=== PATIENT | male | born 1985 | race Hispanic/Latino ===

== ENCOUNTER 2019-06-03 09:34 | Emergency (ER) | payer SELFPAY ==
[2019-06-03] MEDS ORDERED: ASPIRIN EC 81 MG TAB PO ONE (11:12)
--- NOTE | 2019-06-03 11:25 | RAD REPORT ---
EXAM DESCRIPTION: RAD - Chest Single View - 06/03/2019 11:09 am CLINICAL HISTORY: CHEST PAIN Chest pain. COMPARISON: CHEST PA AND LAT 2 VIEW dated 02/27/2015 FINDINGS: Portable technique limits examination quality. No focal infiltrate is seen. The lungs are grossly clear. The heart is normal in size. No displaced f ractures. IMPRESSION: No acute intrathoracic process suspected.
[2019-06-03 11:30] LABS: Protime INR 1.07
[2019-06-03 11:31] LABS: Absolute Lymphocytes (CBC) 2.4 K/uL (0.7-4.9); Basophils % 0.8 % (0-1.3); Hematocrit 43.7 % (39.6-49.0); Lymphocytes % 31.8 % (15.3-44.8); MPV 8.7 fL (7.6-11.3); RBC Red Blood Cell Count 4.94 M/uL (4.33-5.43)
[2019-06-03 11:53] LABS: ALT/SGPT 42 U/L (12-78); AST/SGOT 20 U/L (15-37); Albumin 3.5 g/dL (3.4-5.0); Alkaline Phosphatase 79 U/L (45-117); BUN Blood Urea Nitrogen 12 mg/dL (7-18); Bicarbonate 28 mmol/L (21-32); Bilirubin Direct 0.1 mg/dL (0-0.2); Bilirubin Total 0.5 mg/dL (0.2-1.0); Glucose Level 133 mg/dL (74-106); NT PRO-BNP 61 pg/mL (<125); Potassium 3.6 mmol/L (3.5-5.1); Protein, Total 7.3 g/dL (6.4-8.2); Sodium Level 144 mmol/L (136-145); Troponin (Emerg Dept Use Only) < 0.02 ng/mL (0.0-0.045)
--- NOTE | 2019-06-03 15:22 | ER ---
Nurse's Notes [facility] Name: Albert Ramirez Jr Age: 34 yrs Sex: Male : 1985 Arrival Date: 06/03/2019 Time: 09:35 Bed 15 Private MD: Diagnosis: Chest pain, unspecified Presentation: 06/03 10:30 Presenting complaint: Patient states: Chest pain "around heart" that began yesterday ph after attempting to pull/move a trailer at work yesterday, denies SOB, N/V. Transition of care: patient was not received from another setting of care. Onset of symptoms was June 03, 2019. Risk Assessment: Do you want to hurt yourself or someone else? Patient reports no desire to harm self or others. Initial Sepsis Screen: Does the patient meet any 2 criteria? No. Patient's initial sepsis screen is negative. Does the patient have a suspected source of infection? No. Patient's initial sepsis screen is negative. Care prior to arrival: None. 10:30 Method Of Arrival: Ambulatory ph 10:30 Acuity: OLSEYA 3 ph Historical: - Allergies: 10:33 No Known Allergies; ph - Home Meds: 10:33 Lisinopril Oral [Active]; ph - PMHx: 10:33 Hypertension; ph - PSHx: 10:33 None; ph - Immunization history:: Adult Immunizations unknown. - Social history:: Patient uses Vape, Smoking status: Patient/guardian denies using tobacco. - Ebola Screening: : No symptoms or risks identified at this time. Screenin:34 Abuse screen: Denies threats or abuse. Denies injuries from another. Nutritional ph screening: No deficits noted. Tuberculosis screening: No symptoms or risk factors identified. Fall Risk None identified. Assessment: 11:00 General: Appears in no apparent distress. comfortable, obese, well groomed, Behavior is ph calm, cooperative, appropriate for age, Denies fever, feeling ill. Pain: Complains of pain in anterior aspect of left upper chest Pain does not radiate. Pain began 1 day ago. Neuro: Level of Consciousness is awake, alert, obeys commands, Oriented to person, place, time, situation. Cardiovascular: Reports chest pain, Denies lightheadedness, nausea, shortness of breath, Capillary refill < 3 seconds in bilateral fingers Patient's skin is warm and dry. Rhythm is sinus rhythm Chest pain is described as mild, is located in left anterior chest wall. Respiratory: Airway is patent Respiratory effort is even, unlabored, Respiratory pattern is regular, symmetrical. Derm: Skin is intact, is healthy with good turgor, Skin is pink, warm \\T\\ dry. 12:00 Reassessment: Patient appears in no apparent distress at this time. Patient and/or ph family updated on plan of care and expected duration. Pain level reassessed. Patient is alert, oriented x 3, equal unlabored respirations, skin warm/dry/pink. 13:00 Reassessment: Patient appears in no apparent distress at this time. Patient and/or ph family updated on plan of care and expected duration. Pain level reassessed. Patient is alert, oriented x 3, equal unlabored respirations, skin warm/dry/pink. 14:20 Reassessment: Patient appears in no apparent distress at this time. Patient and/or ph family updated on plan of care and expected duration. Pain level reassessed. Patient is alert, oriented x 3, equal unlabored respirations, skin warm/dry/pink. Pt resting quietly, awaiting results repeat cardiac enzymes. Vital Signs: 10:32 BP 134 / 84; Pulse 80; Resp 18; Temp 98.2; Pulse Ox 97% on R/A; Weight 136.08 kg; ph Height 5 ft. 11 in. (180.34 cm); Pain 1/10; 11:32 BP 122 / 85; Pulse 68; Resp 18; Pulse Ox 96% on R/A; ph 13:09 BP 128 / 91; Pulse 67; Resp 13; Temp 98.0(O); Pulse Ox 98% on R/A; mh5 14:14 BP 134 / 89; Pulse 63; Resp 18; Pulse Ox 100% on R/A; ph 10:32 Body Mass Index 41.84 (136.08 kg, 180.34 cm) ph ED Course: 09:35 Patient arrived in ED. as 10:05 EKG done, by technical sourcing recruiter. reviewed by Jake Lisa MD. at1 10:25 Hu Tamayo PA is PHCP. cp 10:25 Jake Lisa MD is Attending Physician. cp 10:30 Arin Hernández, SHANI is Primary Nurse. ph 10:32 Triage completed. ph 10:34 Patient maintains SpO2 saturation greater than 95% on room air. ph 10:34 Arm band placed on. ph 10:34 Patient has correct armband on for positive identification. Bed in low position. Call ph light in reach. Side rails up X 1. Pulse ox on. NIBP on. Door closed. Noise minimized. Warm blanket given. 11:10 X-ray completed. Portable x-ray completed in exam room. Patient tolerated procedure [facility] well. 11:12 XRAY Chest (1 view) In Process Unspecified. EDAL 11:19 Initial lab(s) drawn, by hi, sent to lab. Inserted saline lock: 22 gauge in right [facility] antecubital area, using aseptic technique. Blood collected. 11:20 Basic Metabolic Panel Sent. [facility] 11:20 CBC with Diff Sent. [facility] 11:20 LFT's Sent. [facility] 11:20 Magnesium Sent. [facility] 11:20 NT PRO-BNP Sent. [facility] 11:20 PT-INR Sent. [facility] 11:20 Troponin (emerg Dept Use Only) Sent. [facility] 11:23 monitor car operator on. [facility] 15:19 Frank Solis MD is Referral Physician. cp 15:30 No provider procedures requiring assistance completed. IV discontinued, intact, ph bleeding controlled, No redness/swelling at site. Pressure dressing applied. Administered Medications: 11:31 Drug: Aspirin Chewable Tablet 324 mg Route: PO; ph Outcome: 15:20 Discharge ordered by MD. cp 15:38 Patient left the ED. ph 15:38 Discharged to home ambulatory. ph 15:38 Condition: good 15:38 Discharge instructions given to patient, Instructed on discharge instructions, follow up and referral plans. Demonstrated understanding of instructions, follow-up care. Signatures: Dispatcher [employer] EDMS Lili Hannon 1 Elena Elliott Amanda, copy writer EKG [facility] Arin Hernández, RN RN ph Hu Tamayo, MATTHEW PA cp Ashleigh Elliott [facility]
--- NOTE | 2019-06-03 15:22 | EDPHYS ---
Physician Documentation [facility] Name: Albert Ramirez Jr Age: 34 yrs Sex: Male : 1985 Arrival Date: 06/03/2019 Time: 09:35 Bed 15 Private MD: ED Physician Jake Lisa HPI: 06/03 11:00 This 34 yrs old Male presents to ER via Ambulatory with complaints of Chest cp Pain. 11:00 The patient or guardian reports chest pain that is located primarily in the anterior cp chest wall. 11:00 The pain does not radiate. Associated signs and symptoms: Pertinent negatives: cp abdominal pain, cough, diaphoresis, dizziness, lower extremity pain, lower extremity swelling, shortness of breath, syncope. 11:00 The chest pain is described as aching. cp 11:00 Duration: The patient or guardian reports multiple episodes, 1 episode yesterday that cp started at work after moving trailer. Patient reports pain resolved later that day but returned this morning when he awoke. Patient reports pain has resolved. Historical: - Allergies: 10:33 No Known Allergies; ph - Home Meds: 10:33 Lisinopril Oral [Active]; ph - PMHx: 10:33 Hypertension; ph - PSHx: 10:33 None; ph - Immunization history:: Adult Immunizations unknown. - Social history:: Patient uses Vape, Smoking status: Patient/guardian denies using tobacco. - Ebola Screening: : No symptoms or risks identified at this time. ROS: 11:05 Constitutional: Negative for body aches, chills, fever, poor PO intake. cp 11:05 Eyes: Negative for injury, pain, redness, and discharge. cp 11:05 ENT: Negative for drainage from ear(s), ear pain, sore throat, difficulty swallowing, difficulty handling secretions. 11:05 Cardiovascular: Positive for chest pain, Negative for edema, palpitations. 11:05 Respiratory: Negative for cough, shortness of breath, wheezing. 11:05 Abdomen/GI: Negative for abdominal pain, nausea, vomiting, and diarrhea, constipation, black/tarry stool, rectal bleeding. 11:05 Back: Negative for pain at rest, pain with movement, radiated pain. 11:05 : Negative for urinary symptoms. 11:05 Skin: Negative for cellulitis, rash. 11:05 Neuro: Negative for altered mental status, dizziness, headache, numbness, weakness. 11:05 All other systems are negative. Exam: 11:10 ECG was reviewed by the Attending Physician. cp 11:15 Constitutional: The patient appears in no acute distress, alert, awake, comfortable, cp non-diaphoretic, non-toxic, well developed, well nourished. 11:15 Head/Face: Normocephalic, atraumatic. Eyes: Pupils equal round and reactive to light, cp extra-ocular motions intact. Lids and lashes normal. Conjunctiva and sclera are non-icteric and not injected. Cornea within normal limits. Periorbital areas with no swelling, redness, or edema. ENT: Nares patent. No nasal discharge, no septal abnormalities noted. Tympanic membranes are normal and external auditory canals are clear. Oropharynx with no redness, swelling, or masses, exudates, or evidence of obstruction, uvula midline. Mucous membranes moist. Neck: Trachea midline, no thyromegaly or masses palpated, and no cervical lymphadenopathy. Supple, full range of motion without nuchal rigidity, or vertebral point tenderness. No Meningismus. Chest/axilla: Normal chest wall appearance and motion. Nontender with no deformity. No lesions are appreciated. Cardiovascular: Regular rate and rhythm with a normal S1 and S2. No gallops, murmurs, or rubs. Normal PMI, no JVD. No pulse deficits. Respiratory: Lungs have equal breath sounds bilaterally, clear to auscultation and percussion. No rales, rhonchi or wheezes noted. No increased work of breathing, no retractions or nasal flaring. Abdomen/GI: Soft, non-tender, with normal bowel sounds. No distension or tympany. No guarding or rebound. No evidence of tenderness throughout. Skin: Warm, dry with normal turgor. Normal color with no rashes, no lesions, and no evidence of cellulitis. Neuro: Awake and alert, GCS 15, oriented to person, place, time, and situation. Cranial nerves II-XII grossly intact. Motor strength 5/5 in all extremities. Sensory grossly intact. Cerebellar exam normal. Normal gait. 14:30 ECG was reviewed by the Attending Physician. cp Vital Signs: 10:32 BP 134 / 84; Pulse 80; Resp 18; Temp 98.2; Pulse Ox 97% on R/A; Weight 136.08 kg; ph Height 5 ft. 11 in. (180.34 cm); Pain 1/10; 11:32 BP 122 / 85; Pulse 68; Resp 18; Pulse Ox 96% on R/A; ph 13:09 BP 128 / 91; Pulse 67; Resp 13; Temp 98.0(O); Pulse Ox 98% on R/A; mh5 14:14 BP 134 / 89; Pulse 63; Resp 18; Pulse Ox 100% on R/A; ph 10:32 Body Mass Index 41.84 (136.08 kg, 180.34 cm) ph MDM: 10:40 Patient medically screened. cp 15:19 Data reviewed: vital signs, nurses notes, lab test result(s), EKG, radiologic studies, cp plain films. 15:19 Differential diagnosis: abnormal EKG, acute pericarditis, cholecystitis, Cholelithiasis cp costochondritis, pleurisy, pneumonia, pneumothorax, pulmonary embolus, less likely [place]. Test interpretation: by ED physician or midlevel provider: ECG, plain radiologic studies. Counseling: I had a detailed discussion with the patient and/or guardian regarding: the historical points, exam findings, and any diagnostic results supporting the discharge/admit diagnosis, lab results, radiology results, the need for outpatient follow up, a donor relations officer, to return to the emergency department if symptoms worsen or persist or if there are any questions or concerns that arise at home. Special discussion: Based on the patient's history, exam, and Dx evaluation, there is no indication for emergent intervention or inpatient Tx. It is understood by the patient/guardian that if the Sx's persist or worsen they need to return immediately for re-evaluation. 06/03 10:50 Order name: Basic Metabolic Panel; Complete Time: 11:55 cp 06/03 11:55 Interpretation: Normal except: CL 110; GLUC 133. cp 06/03 10:50 Order name: CBC with Diff; Complete Time: 11:45 cp 06/03 10:50 Order name: LFT's; Complete Time: 11:55 cp 06/03 10:50 Order name: Magnesium; Complete Time: 11:55 cp 06/03 10:50 Order name: NT PRO-BNP; Complete Time: 11:55 cp 06/03 10:50 Order name: PT-INR; Complete Time: 11:45 cp 06/03 10:50 Order name: Troponin (emerg Dept Use Only); Complete Time: 11:55 cp 06/03 10:50 Order name: XRAY Chest (1 view); Complete Time: 11:45 cp 06/03 11:45 Interpretation: Report review. 06/03 10:50 Order name: EKG; Complete Time: 10:52 cp 06/03 10:50 Order name: Cardiac monitoring; Complete Time: 11:21 cp 06/03 10:50 Order name: EKG - Nurse/Tech; Complete Time: 11:32 cp 06/03 14:02 Order name: EKG; Complete Time: 14:03 cp 06/03 14:02 Order name: Troponin I; Complete Time: 15:17 cp 06/03 15:18 Interpretation: Reviewed. 06/03 10:50 Order name: IV Saline Lock; Complete Time: 11:21 cp 06/03 10:50 Order name: Labs collected and sent; Complete Time: 11:21 cp 06/03 10:50 Order name: O2 Per Protocol; Complete Time: 11:32 cp 06/03 10:50 Order name: O2 Sat Monitoring; Complete Time: 11:32 cp 06/03 14:02 Order name: EKG - Nurse/Tech; Complete Time: 15:28 cp EC:10 Rate is 69 beats/min. Rhythm is regular. DE interval is normal. QRS interval is normal. cp QT interval is normal. T waves are Inverted in lead III. Interpreted by me. Reviewed by me. 14:30 Rate is 61 beats/min. Rhythm is regular. DE interval is normal. QRS interval is normal. cp QT interval is normal. T waves are Inverted in lead III. Interpreted by me. Reviewed by me. Administered Medications: 11:31 Drug: Aspirin Chewable Tablet 324 mg Route: PO; ph Disposition: 06/03/19 15:20 Discharged to Home. Impression: Chest pain, unspecified. - Condition is Stable. - Discharge Instructions: Nonspecific Chest Pain, Aspirin and Your Heart. - Work release form, Medication Reconciliation Form, Thank You Letter, Antibiotic Education, Prescription Opioid Use form. - Follow up: Frank Solis MD; When: 1 - 2 days; Reason: Recheck today's complaints. - Problem is new. - Symptoms have improved. Addendum: 06/08/2019 09:42 Co-signature as Attending Physician, Jake Lisa MD I agree with the assessment and cricket gallo plan of care. Signatures: Dispatcher [employer] EDJake Aldrich MD MD [facility] Arin Hernández RN RN ph Belkis, MATTHEW Lui cp Corrections: (The following items were deleted from the chart) 06/03 15:38 15:20 06/03/2019 15:20 Discharged to Home. Impression: Chest pain, unspecified. ph Condition is Stable. Forms are Medication Reconciliation Form, Thank You Letter, Antibiotic Education, Prescription Opioid Use. Follow up: Frank Solis; When: 1 - 2 days; Reason: Recheck today's complaints. Problem is new. Symptoms have improved. cp
--- NOTE | 2019-06-03 15:55 | EKG ---
Test Date: 2019-06-03 Test Time: 14:23:18 Army Manager: KEVIN MEASUREMENT RESULTS: Intervals: Rate: 61 MS: 172 QRSD: 88 QT: 424 QTc: 426 [place]: P: 45 MS: 172 QRS: 54 T: 0 INTERPRETIVE STATEMENTS: Normal sinus rhythm with sinus arrhythmia Possible Inferior infarct, age undetermined Abnormal ECG Compared to ECG 06/03/2019 09:44:09 Myocardial infarct finding now present Electronically Signed On 06-03-19 15:54:01 CDT by Sami Vivas
--- NOTE | 2019-06-03 15:56 | EKG ---
Test Date: 2019-06-03 Test Time: 09:44:09 Counter Intelligence: THOMAS MEASUREMENT RESULTS: Intervals: Rate: 69 LA: 172 QRSD: 88 QT: 402 QTc: 430 [place]: P: 52 LA: 172 QRS: 69 T: 15 INTERPRETIVE STATEMENTS: Normal sinus rhythm Normal ECG No previous ECG available for comparison Electronically Signed On 06-03-19 15:54:20 CDT by Sami Vivas
[2019-06-03 16:08] VITALS: TEMP 98
[2019-06-03 16:10] VITALS: BP 134/89; O2SAT 100
== END 2019-06-03 15:38 | disposition home or self-care (01) ==
LOC: ER 09:34
DX: R07.9 Chest pain, unspecified (principal); I10 Essential (primary) hypertension
CPT/HCPCS: 36415; 71045; 80048; 80076; 83735; 83880; 84484; 85025; 85610; 93005; 99285

== ENCOUNTER 2022-04-27 12:33 | Emergency (ER) | payer SELFPAY ==
[2022-04-27] MEDS ORDERED: KETOROLAC 30 MG/ML INJ ONE (13:31)
[2022-04-27 13:43] LABS: Absolute Lymphocytes (CBC) 1.9 K/uL (0.7-4.9); Hematocrit 48.4 % (39.6-49.0); Lymphocytes % 33.5 % (15.3-44.8); MCV 87.7 fL (80-100); MPV 7.5 fL (7.6-11.3); RBC Red Blood Cell Count 5.51 M/uL (4.33-5.43)
[2022-04-27 13:55] LABS: Albumin 3.4 g/dL (3.4-5.0); Bilirubin Total 0.4 mg/dL (0.2-1.0); Protein, Total 7.9 g/dL (6.4-8.2)
--- NOTE | 2022-04-27 13:58 | RAD REPORT ---
EXAM DESCRIPTION: RAD - Elbow Left 3 View - 04/27/2022 1:48 pm CLINICAL HISTORY: Left elbow pain FINDINGS: No fracture or dislocation is seen. No bony destructive lesion is seen. No significant joint effusion
--- NOTE | 2022-04-27 13:59 | RAD REPORT ---
EXAM DESCRIPTION: RAD - Knee Left 3 View - 04/27/2022 1:47 pm CLINICAL HISTORY: Left knee pain FINDINGS: No fracture or dislocation is seen. No bony destructive lesion is seen. No significant joint effusion
--- NOTE | 2022-04-27 14:06 | EDPHYS ---
Physician Documentation [facility] Name: Albert Ramirez Jr Age: 37 yrs Sex: Male : 1985 Arrival Date: 04/27/2022 Time: 12:40 Bed 24 Private MD: ED Physician Jake Lisa HPI: 04/27 13:33 This 37 yrs old Male presents to ER via Ambulatory with complaints of Possible pm1 Lyme Disease. 13:33 The patient's rash thought to be caused by insect bites, tick bite about one month ago. pm1 The rash is located on the right clifton. The rash can be described as patchy. Onset: The symptoms/episode began/occurred 1 week(s) ago. Associated signs and symptoms: Pertinent positives: Joint pain to bilateral knees and left elbow, body aches, Pertinent negatives: fever. Severity of symptoms: in the emergency department the symptoms have improved Right knee pain resolved. Left knee pain and left elbow pain improved but still present. Left knee pain present with standing and left elbow pain present only with full extension. Treatment given at home: None. The patient has not experienced similar symptoms in the past. The patient has been recently seen at an urgent care, last week, for similar complaints, was given a prescription for antibiotics, Patient was seen for the same symptoms 1 week ago in a urgent care and had swabs for COVID and it was negative. Patient reports 1 month ago he was bitten by a tick to the right clifton area. Patient presenting to ER with concerns for Lyme disease when symptoms of rash, flu symptoms, and joint pain appeared last Saturday. Went to urgent care one week ago and was tested for covid, negative result. He was prescribe sulfa and mupirocin and was diagnosed with cellulitis. Patient reports improvement in his cellulitis and flu symptoms. Historical: - Allergies: 12:45 No Known Allergies; ap3 - Home Meds: 12:45 unknown antibiotic [Active]; ap3 - PMHx: 12:45 Hypertension; ap3 - Immunization history:: Client reports receiving the 2nd dose of the Covid vaccine. - Social history:: Smoking status: Patient reports the use of cigarette tobacco products, denies chronic smoking, but will smoke occasionally. ROS: 13:33 Cardiovascular: Negative for chest pain, palpitations, and edema, Respiratory: Negative pm1 for shortness of breath, cough, wheezing, and pleuritic chest pain, Abdomen/GI: Negative for abdominal pain, nausea, vomiting, diarrhea, and constipation. 13:33 Neuro: Negative for headache, weakness, numbness, tingling, and seizure. 13:33 Constitutional: Positive for body aches, that have resolved, Negative for fever, poor PO intake. 13:33 MS/extremity: Positive for joint pain, bilateral knees and left elbow. Resolved to right knee, Negative for decreased range of motion, deformity. 13:33 Skin: Positive for rash, of the right clifton. 13:33 All other systems are negative. Exam: 13:33 Constitutional: This is a well developed, well nourished patient who is awake, alert, pm1 and in no acute distress. Head/Face: Normocephalic, atraumatic. 13:33 Eyes: Exam is negative for acute changes, Periorbital structures: appear normal, Pupils: no acute changes, Extraocular movements: no acute changes, Conjunctiva: no acute changes, no injection. 13:33 ENT: Exam is negative for acute changes, Mouth: no acute changes, Lips: normal, moist, Oral mucosa: normal, pink and intact, moist. 13:33 Cardiovascular: Exam negative for acute changes, Rate: normal, Rhythm: regular, Pulses: no pulse deficits are appreciated. 13:33 Respiratory: Exam negative for acute changes, respiratory distress, shortness of breath, Breath sounds: are clear throughout. 13:33 Skin: Appearance: normal except for affected area, rash a mild rash is noted, rash can be described as macular, negative for raised, warmth, swelling, tenderness, on the right clifton. 13:33 Neuro: Exam negative for acute changes, Orientation: is normal, Mentation: is normal, Motor: is normal, moves all fours, Sensation: is normal, no obvious gross deficits. Vital Signs: 12:40 BP 149 / 98; Pulse 98; Resp 17; Temp 97.8; Pulse Ox 98% ; Weight 136.08 kg; Height 5 ap3 ft. 11 in. (180.34 cm); 12:40 Body Mass Index 41.84 (136.08 kg, 180.34 cm) ap3 MDM: 13:06 Patient medically screened. pm1 13:33 ED course: Informed patient that I will not be able to get a Lyme disease titer on him pm1 in the ER and that he would need to follow up with a PCP for that test. However I can test the patient for other possible issues based on his symptom presentation. Patient was seen on Saturday and prescribed Bactrim for cellulitis of right clifton. Discussed with patient that I will will cover patient with doxycycline and get blood work, x-rays. Patient refused flu and COVID test. Had tests performed on Saturday and they were negative. Patient reports few symptoms have resolved and his cellulitis to right clifton has improved with Bactrim. 13:57 Data reviewed: vital signs. Data interpreted: Pulse oximetry: on room air is 98 %. pm1 Interpretation: normal. 14:03 Counseling: I had a detailed discussion with the patient and/or guardian regarding: the pm1 historical points, exam findings, and any diagnostic results supporting the discharge/admit diagnosis, lab results, radiology results, the need for outpatient follow up, to return to the emergency department if symptoms worsen or persist or if there are any questions or concerns that arise at home. 04/27 13:19 Order name: CBC with Diff; Complete Time: 13:57 pm1 04/27 13:19 Order name: CMP; Complete Time: 13:57 pm1 04/27 13:19 Order name: IV Saline Lock; Complete Time: 13:33 pm1 04/27 13:19 Order name: Knee Left 3 View XRAY; Complete Time: 14:00 pm1 04/27 13:19 Order name: Elbow Left 3 View XRAY; Complete Time: 13:59 pm1 Administered Medications: 13:33 Drug: Ketorolac 30 mg Route: IVP; Site: right wrist; hb 14:00 Follow up: Response: No adverse reaction hb Disposition: 15:43 Co-signature as Attending Physician, Jake Lsia MD I agree with the assessment and kdr plan of care. Disposition Summary: 04/27/22 14:05 Discharge Ordered Location: Home pm1 Problem: new pm1 Symptoms: have improved pm1 Condition: Stable pm1 Diagnosis - Cellulitis of right lower limb pm1 Followup: pm1 - With: Emergency Department - When: As needed - Reason: Worsening of condition Followup: pm1 - With: Private Physician - When: 2 - 3 days - Reason: Recheck today's complaints, Continuance of care, Re-evaluation by your physician Discharge Instructions: - Discharge Summary Sheet pm1 - Cellulitis, Adult pm1 Forms: - Medication Reconciliation Form pm1 - Thank You Letter pm1 - Antibiotic Education pm1 - Prescription Opioid Use pm1 Prescriptions: - Doxycycline Hyclate 100 mg Oral Tablet - take 1 tablet by ORAL route every 12 hours; 20 tablet; Refills: 0, Product pm1 Selection Permitted - Diclofenac Sodium 75 mg Oral tablet,delayed release (DR/EC) - take 1 tablet by ORAL route 2 times per day As needed; 30 tablet; Refills: 0, pm1 Product Selection Permitted Signatures: Dispatcher [employer] EDJake Adlrich MD MD kdr Marinas, Patrick, NP DRUMS TEACHER pm1 Lavonne Kelsey RN RN Flora Pollard RN RN ap3
--- NOTE | 2022-04-27 14:06 | ER ---
Nurse's Notes [facility] Name: Albert Ramirez Jr Age: 37 yrs Sex: Male : 1985 Arrival Date: 04/27/2022 Time: 12:40 Bed 24 Private MD: Diagnosis: Cellulitis of right lower limb Presentation: 04/27 12:40 Chief complaint: Patient states: he came to the ED today to be tested for Lyme disease. ap3 Patient states he got bit by a tick approx one month ago. Patient reports body aches and headaches off and on for approx one week, with 2 negative COVID results. He states he as a friend that is a bartolo, who informed him to be tested for Lyme. Patient states he then googled Lyme disease and his symptoms "match up perfectly". Patient states he has, what he believes to be a staph infection on his right lower limb, but he is getting treated for that. patient states he was bit by the tick on the left lower limb. Coronavirus screen: Client presents with at least one sign or symptom that may indicate coronavirus-19. Ebola Screen: No symptoms or risks identified at this time. Initial Sepsis Screen: Does the patient meet any 2 criteria? No. Patient's initial sepsis screen is negative. Does the patient have a suspected source of infection? No. Patient's initial sepsis screen is negative. Risk Assessment: Do you want to hurt yourself or someone else? Patient reports no desire to harm self or others. Onset of symptoms was April 17, 2022. 12:40 Method Of Arrival: Ambulatory ap3 12:40 Acuity: OLESYA 3 ap3 Triage Assessment: 12:46 General: Appears in no apparent distress. Behavior is calm, cooperative. Pain: ap3 Complains of pain in generalized body aches Pain began gradually, Is intermittent. Neuro: Level of Consciousness is awake, alert, obeys commands, Oriented to person, place, time, situation, Gait is steady, Speech is normal. Cardiovascular: Patient's skin is warm and dry. Respiratory: Airway is patent Respiratory effort is even, unlabored, Respiratory pattern is regular, symmetrical. Derm: Rash noted that is red, on right clifton. Historical: - Allergies: 12:45 No Known Allergies; ap3 - Home Meds: 12:45 unknown antibiotic [Active]; ap3 - PMHx: 12:45 Hypertension; ap3 - Immunization history:: Client reports receiving the 2nd dose of the Covid vaccine. - Social history:: Smoking status: Patient reports the use of cigarette tobacco products, denies chronic smoking, but will smoke occasionally. Screenin:47 Abuse screen: Denies threats or abuse. Nutritional screening: No deficits noted. ap3 Tuberculosis screening: No symptoms or risk factors identified. 13:33 Fall Risk None identified. hb Assessment: 13:33 General: Appears in no apparent distress. Behavior is calm, cooperative. Pain: Pain hb currently is 5 out of 10 on a pain scale. Neuro: Level of Consciousness is awake, alert, obeys commands, Oriented to person, place, time, situation. Cardiovascular: Patient's skin is warm and dry. Respiratory: Respiratory effort is even, unlabored, Respiratory pattern is regular, symmetrical. GI: No signs and/or symptoms were reported involving the gastrointestinal system. : No signs and/or symptoms were reported regarding the genitourinary system. EENT: No signs and/or symptoms were reported regarding the EENT system. Derm: Skin is pink, warm \\T\\ dry. Musculoskeletal: Reports pain in left knee, left elbow. Vital Signs: 12:40 BP 149 / 98; Pulse 98; Resp 17; Temp 97.8; Pulse Ox 98% ; Weight 136.08 kg; Height 5 ap3 ft. 11 in. (180.34 cm); 12:40 Body Mass Index 41.84 (136.08 kg, 180.34 cm) ap3 ED Course: 12:40 Patient arrived in ED. ap3 12:45 Triage completed. ap3 12:47 Arm band placed on right wrist. ap3 13:05 Donald Mendez NP is PHCP. pm1 13:05 Jake Lisa MD is Attending Physician. pm1 13:16 aLvonne Kelsey, SHANI is Primary Nurse. hb 13:31 Inserted saline lock: 20 gauge in right wrist, using aseptic technique. Blood collected.hb 13:33 Patient has correct armband on for positive identification. hb 13:49 Knee Left 3 View XRAY In Process Unspecified. EDMS 13:49 Elbow Left 3 View XRAY In Process Unspecified. EDMS 14:30 IV discontinued, intact, bleeding controlled, No redness/swelling at site. hb 08/06 00:04 No provider procedures requiring assistance completed. hb Administered Medications: 04/27 13:33 Drug: Ketorolac 30 mg Route: IVP; Site: right wrist; hb 14:00 Follow up: Response: No adverse reaction hb Medication: 13:33 VIS not applicable for this client. hb Outcome: 14:05 Discharge ordered by . pm1 14:30 Discharged to home ambulatory. hb 14:30 Condition: stable 14:30 Discharge instructions given to patient, Instructed on discharge instructions, follow up and referral plans. medication usage, Demonstrated understanding of instructions, follow-up care, medications, Prescriptions given X 2. 14:31 Patient left the ED. hb Signatures: Dispatcher [employer] EDMS Donald Mendez NP WEB MARKETING ANALYST pm1 Lavonne Kelsey RN RN Flora Pollard RN RN ap3
[2022-04-27 14:50] VITALS: BP 149/98; TEMP 97.8; O2SAT 98
== END 2022-04-27 14:31 | disposition home or self-care (01) ==
LOC: ER 12:33
DX: L03.115 Cellulitis of right lower limb (principal); I10 Essential (primary) hypertension; F17.210 Nicotine dependence, cigarettes, uncomplicated
CPT/HCPCS: 36415; 80053; 85025; 96374; 99284